=== PATIENT | male | born 1960 | race Two or more races ===

== ENCOUNTER 2018-05-21 21:18 | Emergency (ER) | payer MEDICAID ==
[~2018-05-21] VITALS: Ht 177.8 cm; Wt 91.0 kg
[2018-05-21 22:52] LABS: CLARITY URINE CLOUDY (CLEAR); COLOR URINE ORANGE (YELLOW); KETONES URINE TRACE (NEGATIVE); LEUKOCYTE ESTERASE URINE 1+ (NEGATIVE); NITRITE URINE NEGATIVE (NEGATIVE); OCCULT BLOOD URINE 3+ (NEGATIVE); PH URINE 6.5 (4.5-8.0); PROTEIN URINE TRACE (NEGATIVE)
[2018-05-22] MEDS ORDERED: ACETAMINOPHEN 325MG TABLET PO ONE (02:15)
[2018-05-22 02:46] LABS: BASOPHILS % 0.7 % (0.0-2.0); EOSINOPHILS % 1.9 % (0.0-5.0); HEMATOCRIT. 43.8 % (42.0-52.0); HEMOGLOBIN. 15.1 g/dL (14.0-18.0); LYMPHOCYTES % 34.9 % (20.0-50.0); MEAN CORPUSCULAR HEMOGLOBIN 31.1 pg (28.0-32.0); MEAN CORPUSCULAR VOLUME 90.4 fL (80.0-94.0); MONOCYTES % 7.7 % (2.0-8.0); NEUTROPHILS % 54.8 % (40.0-76.0); PLATELET 274 x1000/uL (130-400); RED BLOOD CELL COUNT 4.84 mill/uL (4.7-6.1); RED CELL DISTRIBUTION WIDTH 13.8 % (11.6-14.6)
[2018-05-22 02:53] LABS: CHLORIDE 112 mEq/L (98-107)
[2018-05-22 04:00] VITALS: BP 112/61
== END 2018-05-22 05:18 | disposition home or self-care (01) ==
LOC: ER 21:18 → EDSEX 21:18 → ER 05-22 05:18
DX: N39.0 Urinary tract infection, site not specified (principal); N20.0 Calculus of kidney; R31.9 Hematuria, unspecified
CPT/HCPCS: 36415; 74176; 80053; 81003; 83690; 85025; 99284; Z7610